=== PATIENT | male | born 1995 | race Caucasian/White ===

== ENCOUNTER 2019-06-08 17:53 | Emergency (ER) | payer SELFPAY ==
[~2019-06-08] VITALS: Ht 160 cm; Wt 62.0 kg
[2019-06-08] MEDS ORDERED: LEVETIRACETAM 500MG TABLET PO ONE ×2 (20:30→21:00)
[2019-06-08 20:58] VITALS: BP 133/88
[2019-06-08] MEDS ORDERED: LEVETIRACETAM 500MG TABLET PO NR (21:00)
== END 2019-06-08 21:03 | disposition home or self-care (01) ==
LOC: ER 18:23
DX: Z76.0 Encounter for issue of repeat prescription (principal); G40.909 Epilepsy, unspecified, not intractable, without status epilepticus; G83.89 Other specified paralytic syndromes; Z98.890 Other specified postprocedural states; Z87.828 Personal history of other (healed) physical injury and trauma
CPT/HCPCS: 99283

== ENCOUNTER 2019-06-10 03:48 | Emergency (ER) | payer SELFPAY ==
[~2019-06-10] VITALS: Ht 157.5 cm; Wt 59.0 kg
[2019-06-10] MEDS ORDERED: LEVETIRACETAM 500MG TABLET PO NR (07:35)
[2019-06-10 07:43] VITALS: BP 122/67
[2019-06-10] MEDS ORDERED: LEVETIRACETAM 500MG/5ML CUP PO ONE (07:45)
== END 2019-06-10 07:48 | disposition home or self-care (01) ==
LOC: ER 03:48
DX: G40.909 Epilepsy, unspecified, not intractable, without status epilepticus (principal); Z76.0 Encounter for issue of repeat prescription; F12.90 Cannabis use, unspecified, uncomplicated
CPT/HCPCS: 99283

== ENCOUNTER 2020-08-25 22:34 | Emergency (ER) | payer SELFPAY ==
[~2020-08-25] VITALS: Ht 162.6 cm; Wt 65.0 kg
[2020-08-25 22:44] VITALS: BP 139/87
== END 2020-08-26 01:43 | disposition home or self-care (01) ==
LOC: ER 22:34
DX: Z76.0 Encounter for issue of repeat prescription (principal); G40.909 Epilepsy, unspecified, not intractable, without status epilepticus; F90.9 Attention-deficit hyperactivity disorder, unspecified type
CPT/HCPCS: 99283

== ENCOUNTER 2023-06-09 19:19 | Emergency (ER) | payer SELFPAY ==
[~2023-06-09] VITALS: Ht 170.2 cm; Wt 82.0 kg
[2023-06-09 19:24] VITALS: O2SAT 98
[2023-06-09] MEDS ORDERED: LORAZEPAM 2MG/ML CPJ IV ONE ×2 (19:45→20:45)
[2023-06-09] MEDS ORDERED: LEVETIRACETAM 500MG TABLET PO STA (19:56)
[2023-06-09 20:44] LABS: BASOPHILS % 0.3 % (0.0-2.0); EOSINOPHILS % 0.1 % (0.0-5.0); HEMATOCRIT. 46.2 % (42.0-52.0); HEMOGLOBIN. 15.7 g/dL (14.0-18.0); LYMPHOCYTES % 8.5 % (20.0-50.0); MEAN CORPUSCULAR HEMOGLOBIN 31.6 pg (28.0-32.0); MEAN CORPUSCULAR VOLUME 93.1 fL (80.0-94.0); MEAN PLATELET VOLUME 7.8 fl (7.4-10.4); MONOCYTES % 4.6 % (2.0-8.0); NEUTROPHILS % 86.5 % (40.0-76.0); PLATELET 287 x1000/uL (130-400); RED BLOOD CELL COUNT 4.97 mill/uL (4.7-6.1); RED CELL DISTRIBUTION WIDTH 13.2 % (11.6-14.6); WHITE BLOOD COUNT 18.6 x1000/uL (4.5-11.0)
[2023-06-09 21:05] LABS: CHLORIDE 105 mEq/L (98-107); INDEX HEMOLYSI 1 (1-3); INDEX ICTERIC 1 (1-4); INDEX LIPEMIC 1 (1-3); POTASSIUM 3.2 mEq/L (3.5-5.1); SODIUM 139 mEq/L (136-145)
[2023-06-09 21:13] LABS: ALANINE AMINOTRANSFERASE 74 IU/L (13-61); ALBUMIN 4.3 g/dL (3.4-5.0); ASPARTATE AMINOTRANSFERASE 25 IU/L (15-37); BILIRUBIN TOTAL 0.4 mg/dL (0.1-1.0); CALCIUM 8.5 mg/dL (8.5-10.1); CARBON DIOXIDE 25 mEq/L (21-32); CREATININE 0.7 mg/dL (0.6-1.3); GLUCOSE 104 mg/dL (70-105); PROTEIN TOTAL 8.2 g/dL (6.0-8.3); TROPONIN I HIGH SENSITIVITY 13 ng/L (<78); UREA NITROGEN BLOOD 10 mg/dL (7-21)
[2023-06-09] MEDS ORDERED: SODIUM CHLORIDE 0.9% 1,000 ML IV ONE (21:30)
[2023-06-09] MEDS ORDERED: POTASSIUM CHLORIDE 20MEQ TABLET SR PO ONE (22:00)
[2023-06-09] MEDS ORDERED: CIPR-263 MT (22:20)
[2023-06-09] MEDS ORDERED: CLOT15CR27 TP (22:20)
[2023-06-09 23:20] VITALS: BP 128/75; PULSE 99; RESP 22; TEMP 98.5
[2023-06-10] MEDS ORDERED: LEVE1000 PO (14:42)
== END 2023-06-09 23:30 | disposition home or self-care (01) ==
LOC: ER 19:19 → EDBD 19:19 → ER 23:30
DX: R07.89 Other chest pain (principal); R06.02 Shortness of breath; F12.10 Cannabis abuse, uncomplicated
CPT/HCPCS: 80053; 85025; 84484; 36415; 71045; 93005; 96361; 96374; 96376; 99285; J2060; J7030; Z7610 ×4

== ENCOUNTER 2023-06-10 11:00 | Emergency (ER) | payer SELFPAY ==
[~2023-06-10] VITALS: Ht 167.6 cm; Wt 63.0 kg
[~2023-06-10 11:00] MED LIST: CIPR-263 MT; CLOT15CR27 TP
[2023-06-10 11:07] VITALS: O2SAT 99
[2023-06-10 12:00] LABS: EOSINOPHILS % 0.2 % (0.0-5.0); HEMATOCRIT. 46.3 % (42.0-52.0); HEMOGLOBIN. 15.8 g/dL (14.0-18.0); LYMPHOCYTES % 16.9 % (20.0-50.0); MEAN CORPUSCULAR HGB CONC 34.2 g/dL (31.0-37.0); MEAN CORPUSCULAR VOLUME 93.6 fL (80.0-94.0); MEAN PLATELET VOLUME 7.4 fl (7.4-10.4); MONOCYTES % 8.8 % (2.0-8.0); NEUTROPHILS % 73.1 % (40.0-76.0); PLATELET 297 x1000/uL (130-400); RED BLOOD CELL COUNT 4.95 mill/uL (4.7-6.1); RED CELL DISTRIBUTION WIDTH 13.4 % (11.6-14.6); WHITE BLOOD COUNT 14.7 x1000/uL (4.5-11.0)
[2023-06-10 12:07] LABS: CHLORIDE 104 mEq/L (98-107); INDEX HEMOLYSI 1 (1-3); INDEX ICTERIC 1 (1-4); INDEX LIPEMIC 1 (1-3); POTASSIUM 3.2 mEq/L (3.5-5.1); SODIUM 135 mEq/L (136-145)
[2023-06-10 12:16] LABS: ALANINE AMINOTRANSFERASE 62 IU/L (13-61); ALBUMIN 4.3 g/dL (3.4-5.0); ASPARTATE AMINOTRANSFERASE 25 IU/L (15-37); BILIRUBIN TOTAL 0.8 mg/dL (0.1-1.0); CARBON DIOXIDE 27 mEq/L (21-32); CREATININE 0.7 mg/dL (0.6-1.3); GLUCOSE 93 mg/dL (70-105); PROTEIN TOTAL 8.1 g/dL (6.0-8.3); TROPONIN I HIGH SENSITIVITY 8 ng/L (<78); UREA NITROGEN BLOOD 8 mg/dL (7-21)
[2023-06-10 12:27] LABS: D-DIMER < 0.19 mg/L FEU (<0.50); INR 0.9; PROTHROMBIN TIME 10.2 sec (9.6-11.0)
[2023-06-10] MEDS ORDERED: SODIUM CHLORIDE 0.9% 1,000 ML IV ONE (12:45)
[2023-06-10] MEDS ORDERED: POTASSIUM CHLORIDE 20MEQ TABLET SR PO ONE (12:45)
[2023-06-10] MEDS ORDERED: POTASSIUM CHLORIDE 20MEQ TABLET SR PO NR (14:30)
[2023-06-10 14:41] VITALS: BP 144/89; PULSE 94; RESP 20; TEMP 98.6
[2023-06-10] MEDS ORDERED: LEVE1000 PO (14:42)
[2023-06-11] MEDS ORDERED: LEVE750T4 MT (20:47)
== END 2023-06-10 14:45 | disposition home or self-care (01) ==
LOC: ER 11:10
DX: R07.89 Other chest pain (principal); E87.6 Hypokalemia; E86.0 Dehydration; G40.909 Epilepsy, unspecified, not intractable, without status epilepticus; D72.829 Elevated white blood cell count, unspecified; F12.90 Cannabis use, unspecified, uncomplicated; Z91.010 Allergy to peanuts; Z98.890 Other specified postprocedural states
CPT/HCPCS: 99285; 71045; 80053; 85025; 85379; 85610; 84484; 36415; 93005; J7030

== ENCOUNTER 2023-06-11 20:28 | Emergency (ER) | payer SELFPAY ==
[~2023-06-11] VITALS: Ht 167.6 cm; Wt 81.0 kg
[~2023-06-11 20:28] MED LIST changes: +LEVE1000 PO
[2023-06-11 20:31] VITALS: BP 140/98; PULSE 118; RESP 18; TEMP 98.5; O2SAT 98
[2023-06-11] MEDS ORDERED: LEVE750T4 MT (20:47)
[2023-06-11] MEDS ORDERED: LEVETIRACETAM 250MG TABLET PO ONE (21:00)
== END 2023-06-11 21:51 | disposition home or self-care (01) ==
LOC: ER 20:28
DX: Z76.0 Encounter for issue of repeat prescription (principal); R56.9 Unspecified convulsions; F12.10 Cannabis abuse, uncomplicated
CPT/HCPCS: 99281; 99283

== ENCOUNTER 2023-06-12 04:02 | Emergency (ER) | payer MEDICAID ==
[~2023-06-12] VITALS: Ht 165.1 cm; Wt 82.0 kg
[~2023-06-12 04:02] MED LIST changes: +LEVE750T4 MT
[2023-06-12 04:15] VITALS: BP 149/93; TEMP 98.6; O2SAT 97
[2023-06-12 04:26] VITALS: PULSE 140; RESP 18
[2023-06-12 04:44] LABS: BASOPHILS % 0.8 % (0.0-2.0); EOSINOPHILS % 1.6 % (0.0-5.0); LYMPHOCYTES % 18.4 % (20.0-50.0); MEAN CORPUSCULAR HEMOGLOBIN 31.7 pg (28.0-32.0); MEAN CORPUSCULAR VOLUME 93.2 fL (80.0-94.0); MEAN PLATELET VOLUME 7.2 fl (7.4-10.4); MONOCYTES % 9.9 % (2.0-8.0); NEUTROPHILS % 69.3 % (40.0-76.0); PLATELET 312 x1000/uL (130-400); RED BLOOD CELL COUNT 4.72 mill/uL (4.7-6.1); RED CELL DISTRIBUTION WIDTH 13.4 % (11.6-14.6); WHITE BLOOD COUNT 16.2 x1000/uL (4.5-11.0)
[2023-06-12 04:52] LABS: CHLORIDE 103 mEq/L (98-107); INDEX HEMOLYSI 1 (1-3); INDEX ICTERIC 1 (1-4); INDEX LIPEMIC 1 (1-3); POTASSIUM 3.3 mEq/L (3.5-5.1); SODIUM 135 mEq/L (136-145)
[2023-06-12 04:58] LABS: DIFFERENTIAL COMMENT 1
[2023-06-12 05:01] LABS: ALANINE AMINOTRANSFERASE 48 IU/L (13-61); ALBUMIN 4.2 g/dL (3.4-5.0); ASPARTATE AMINOTRANSFERASE 23 IU/L (15-37); CALCIUM 8.3 mg/dL (8.5-10.1); CARBON DIOXIDE 26 mEq/L (21-32); CREATININE 0.7 mg/dL (0.6-1.3); GLUCOSE 86 mg/dL (70-105); TROPONIN I HIGH SENSITIVITY 5 ng/L (<78); UREA NITROGEN BLOOD 14 mg/dL (7-21)
[2023-06-12] MEDS: SODIUM CHLORIDE 0.9% 1,000 ML IV ONE ×2 (05:49→06:02)
== END 2023-06-12 06:16 | disposition left against medical advice (07) ==
LOC: ER 04:20
DX: R00.0 Tachycardia, unspecified (principal); F12.90 Cannabis use, unspecified, uncomplicated; Z98.890 Other specified postprocedural states; Z91.010 Allergy to peanuts
CPT/HCPCS: 99284; 80053; 85025; 84484; 36415; 93005; J7030